=== PATIENT | female | born 1985 | race African-American/Black ===

== ENCOUNTER 2021-06-12 05:56 | Inpatient (IN) ==
--- NOTE | 2021-06-05 15:00 | Anesthesiology Consultation ---
Date of Service June 05, 2021 Assessment & Plan (1) Encounter for pre-operative examination: Chart Review Chart Review: master plumber initiated -Will leave BSG to anesthesiologist and OB discretion (pt with gestational DM) Per nursing assessment 06/05/2021, patient denies any recent travel. No known Covid infection in the past 90 days. Patient is not vaccinated for Covid. No known Covid positive contacts or Covid related symptoms. Spoke with patient via telephone 06/05/21- recommended she go for preop Covid testing scheduled 06/08/21= will await results. Pt voices understanding History Surgery Operation Date: 06/12/21 08:50 Proposed Procedures p Section Delivery of Baby Through Abdominal Incision - Samia Fuentes MD, FACOG s Bialteral Tubal Ligation - Samia Fuentes MD, FACOG Height/Weight Height: 5 ft 4 in Weight: 106.594 kg Allergies Allergy/AdvReac Type Severity Reaction Status Date / Time No Known Allergies Allergy Verified 06/05/21 14:22 Medications Home Medications Medication Instructions Recorded Confirmed Last Taken acetone (urine) test (Ketone Urine #50 ea 04/11/21 06/01/21 Unknown Test) blood-glucose meter (OneTouch #1 ea 04/11/21 06/01/21 Unknown Verio Flex meter) lancets 33 gauge (OneTouch Delica #150 ea 04/11/21 06/01/21 Unknown Plus Lancet) blood sugar diagnostic (OneTouch #100 ea 04/13/21 06/01/21 Unknown Verio test strips) 1 tab PO QPM 06/05/21 06/05/21 Unknown aspirin 81 mg tablet,delayed 81 mg PO QPM 06/05/21 06/05/21 Unknown release diphenhydramine HCl 25 mg capsule 25 mg PO QPM 06/05/21 06/05/21 Unknown (Benadryl) Past Medical History Medical History Acid reflux Diet controlled Gestational diabetes Diet controlled History of hypertension Resolved with diet changes/exercise Past Family History Family History Mother Hypertension Sister Glaucoma Other No family history of adverse response to anesthesia Denies family history of Ovarian cancer Breast cancer Colorectal cancer Past Surgical History Surgical History History of x 2 Social History Smoking Status: Never smoker Do You Dip or Chew Tobacco: No Hx Alcohol Use: No Hx Substance Use: No substance use type: does not use
--- NOTE | 2021-06-09 12:01 | History & Physical Report ---
Date of Service June 09, 2021 Assessment & Plan (1) Chronic hypertension affecting : (2) Previous delivery affecting , antepartum: (3) Obesity affecting , antepartum: (4) Gestational diabetes mellitus (GDM) affecting : (5) Elderly multigravida: Plan: Admit for planned c/s delivery. Declines tubal. Plan labs morning of admission. Preop abx. SCDs. Consent reviewed and signed. Risks, alternatives and complications reviewed. History of Present Illness Chief Complaint: planned c/s Primary Care Provider: NO PCP 36yo (prior twins) at 38+wks ega for planned section for admission on 06/12/21. She denies rom, vb. +FM. She asks if tubal ligation is permanent and when told she could consider it as such, she declines. She says brought up doing it with her spouse but he seems to be avoiding discussing further and so she does not want to do. PNC c/b 1. Prior c/s x 2, plan repeat c/s 2. CHTN, no meds, last growth EFW 68% 3. AMA 4. Obesity 5. GDM, last ac % 70, sending glucoses to endo PNL RH pos, RI, GBS neg Allergies Allergy/AdvReac Type Severity Reaction Status Date / Time No Known Allergies Allergy Verified 06/09/21 09:03 Home Medications Medication Instructions Recorded Confirmed Type acetone (urine) test (Ketone Urine #50 ea 04/11/21 06/09/21 Rx Test) blood-glucose meter (OneTouch #1 ea 04/11/21 06/09/21 Rx Verio Flex meter) lancets 33 gauge (OneTouch Delica #150 ea 04/11/21 06/09/21 Rx Plus Lancet) blood sugar diagnostic (OneTouch #100 ea 04/13/21 06/09/21 Rx Verio test strips) 1 tab PO QPM 06/05/21 06/09/21 History aspirin 81 mg tablet,delayed 81 mg PO QPM 06/05/21 06/09/21 History release diphenhydramine HCl 25 mg capsule 25 mg PO QPM 06/05/21 06/09/21 History (Benadryl) Patient History Medical History Acid reflux Diet controlled Gestational diabetes Diet controlled History of hypertension Resolved with diet changes/exercise Surgical History History of x 2 Family History Mother Hypertension Sister Glaucoma Other No family history of adverse response to anesthesia Denies family history of Ovarian cancer Breast cancer Colorectal cancer Social History Smoking Status: Never smoker Second Hand Exposure: Yes; Hx Alcohol Use: No Hx Substance Use: No Preferred Language: Belarusian Communication Ability: Effective 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 Beliefs That Will Affect Care: None marital status: marital status details: Ethan Rae(35) [phone] Current Living Situation: Family Current Living Situation Comment: lives with 3 children, spouse lives in [place], no pets current occupational status: employed current occupation: [employer] Feels Safe at Home: Yes Assistive Devices: Glasses Review of Systems as per Subjective / HPI Physical Exam Constitutional: WD/WN, vitals as above Respiratory: normal respiratory effort, lungs clear to auscultation Cardiovascular: Rate/Rhythm: regular rate and regular rhythm Gastrointestinal (Abdomen): soft gravid nt Musculoskeletal: no edema Neurologic: grossly normal Psychiatric: A+Ox3, euthymic affect Coding Level of Care Code None Diagnoses Chronic hypertension affecting O10.919 Previous delivery affecting , antepartum O34.219 Obesity affecting , antepartum O99.210 Gestational diabetes mellitus (GDM) affecting O24.419 Elderly multigravida O09.529
[2021-06-12] MEDS ORDERED: ceFAZolin 3,000 MG in DEXTROSE 5% 50 ML IV SCH (06:00)
[2021-06-12] MEDS ORDERED: CITRIC ACID/SODIUM CITRATE 15 ML UDC PO SCH (06:00)
[2021-06-12] MEDS ORDERED: LACTATED RINGER'S 1,000 ML IV SCH ×3 (06:00→08:45)
[2021-06-12 06:45] LABS: Eosinophils # (auto) 0.07 K/uL (0-0.5); Eosinophils % (auto) 1.2 %; Hematocrit (blood only) 37.7 % (37-47); Hemoglobin 12.4 g/dL (12.0-16.0); Immature Granulocytes # (auto) 0.01 K/uL (0.00-0.02); Immature Granulocytes % (auto) 0.2 %; Lymphocytes # (auto) 1.75 K/uL (1.2-3.4); Lymphocytes % (auto) 30.6 %; Mean Corpuscular Hemoglobin 29.6 pg (25-34); Mean Corpuscular Hgb Conc 32.9 g/dL (32-36); Mean Platelet Volume 10.2 fL (7.4-10.4); Monocytes # (auto) 0.35 K/uL (0.11-0.59); Monocytes % (auto) 6.1 %; Neutrophils # (auto) 3.54 K/uL (1.4-6.5); Neutrophils % (auto) 61.9 %; Platelet Count 198 K/uL (130-400); RDW Coefficient of Variation 14.8 % (11.5-14.5); RDW Standard Deviation 48.3 fL (36.4-46.3); Red Blood Count 4.19 M/uL (4.2-5.4); White Blood Count 5.72 K/uL (4.8-10.8)
[2021-06-12] MEDS ORDERED: MoRPHine SULFATE PF 1 MG/ML 10 ML AMP/VIAL ONE (06:49)
[2021-06-12] MEDS ORDERED: fentaNYL citrate 100 MCG/2 ML VIAL ONE (06:49)
--- NOTE | 2021-06-12 07:19 | History & Physical Bridge Note ---
Date of Service June 12, 2021 History & Physical Bridge Note I have examined the patient, reviewed the History & Physical and in the interval since the performance of the History & Physical I have noted the following changes of clinical significance: no changes noted
[2021-06-12] MEDS ORDERED: OXYTOCIN 10 UNITS/ML VIAL ONE (07:24)
[2021-06-12] MEDS ORDERED: ONDANSETRON INJ 2 MG/ML 2 ML VIAL ONE (07:24)
[2021-06-12] MEDS ORDERED: PHENYLEPHRINE HCL 10 MG/ML VIAL ONE (07:24)
[2021-06-12] MEDS ORDERED: PROMETHAZINE HCL 12.5 MG in SODIUM CHLORIDE 0.9% 50 ML IV PRN (08:12)
[2021-06-12] MEDS ORDERED: ONDANSETRON INJ 2 MG/ML 2 ML VIAL IV PRN ×2 (08:12→09:12)
[2021-06-12] MEDS ORDERED: ePHEDrine sulfate 50 MG/ML SYR ONE (08:12)
[2021-06-12] MEDS ORDERED: NALOXONE HCL 1 MG in SODIUM CHLORIDE 0.9% 1000ML 1,000 ML IV PRN (08:12)
[2021-06-12] MEDS ORDERED: KETOROLAC 30 MG/ML VIAL IV PRN ×2 (08:12→09:12)
[2021-06-12] MEDS ORDERED: NALBUPHINE HCL INJ 10 MG/ML AMP IV PRN (08:12)
[2021-06-12] MEDS ORDERED: ePHEDrine sulfate 50 MG/ML AMP IV PRN (08:12)
[2021-06-12] MEDS ORDERED: LACTATED RINGER'S 500 ML IV PRN (08:12)
[2021-06-12] MEDS ORDERED: NALOXONE HCL 0.4 MG/1 ML VIAL/CARP IV PRN (08:12)
[2021-06-12] MEDS ORDERED: NALOXONE HCL 0.08 MG in SYRINGE 1.8 ML IV PRN (08:12)
[2021-06-12] MEDS ORDERED: MoRPHine SULFATE PF 1 MG/ML 10 ML AMP/VIAL INT SPINAL ONE (08:12)
[2021-06-12] MEDS ORDERED: diphenhydrAMINE 50 MG/ML VIAL IV PRN ×2 (08:12→09:12)
[2021-06-12] MEDS ORDERED: MoRPHine SULFATE 2 MG/ML CARP IV PRN (08:12)
[2021-06-12] MEDS ORDERED: DC INTRASPINAL MORPHINE SCH (08:15)
[2021-06-12] MEDS ORDERED: NO NARCOTICS OR SEDATIVES SCH (08:15)
[2021-06-12] MEDS ORDERED: SODIUM CHLORIDE 0.9% 1000ML 1,000 ML IV SCH (08:15)
[2021-06-12] MEDS ORDERED: MAGNESIUM HYDROXIDE SUSP 30 ML UDC PO PRN ×2 (08:31→09:12)
[2021-06-12] MEDS ORDERED: BENZOCAINE 20% AER SPR 82.5 GM CAN EXT PRN ×2 (08:31→09:12)
[2021-06-12] MEDS ORDERED: DIPHTHERIA/TETANUS/PERTUSSIS 0.5 ML SYR/VIAL IM ONE (08:31)
[2021-06-12] MEDS ORDERED: SENNA 8.6 MG TAB PO PRN ×2 (08:31→09:12)
[2021-06-12] MEDS ORDERED: SUPERCREAM 0.870% 15 GM JAR EXT PRN ×2 (08:31→09:12)
[2021-06-12] MEDS ORDERED: HYDROCORTISONE ACETATE 25 MG SUPP PR PRN ×2 (08:31→09:12)
--- NOTE | 2021-06-12 08:34 | Post Operative Brief Note ---
PG Immediate Post Op with CF Date of Surgery June 12, 2021 Pre & Post Diagnosis Operation Date: 06/12/21 07:30 Pre-Op Diagnosis: 1) Chronic hypertension affecting : (2) Previous delivery affecting , antepartum: (3) Obesity affecting , antepartum: (4) Gestational diabetes mellitus (GDM) affecting : (5) Elderly multigravida 6. 38+week EGA Post-Op Diagnosis: same I identified the patient and participated in the time-out.: Yes Procedure Operation Date: 06/12/21 07:30 Actual Procedures p Repeat Low Transverse Cesearan Section for living female child at 0807(Bilateral) - Samia Fuentes MD, FACOG Surgeon Samia Fuentes MD, FACOG Pharmacist Aide Sonido Estimated Blood Loss 500 Findings Consistent with Post-Op Diagnosis (viable female apgars 8,9 normal uterus, tubes and ovaries bilaterally) Fluids 1500 Specimens Specimen Description: A: placent-hold B: cord blood Drains Osorio Catheter Anesthesia Type Spinal Complications none Disposition Accompanied Patient To Recovery: No Disposition: L&D
--- NOTE | 2021-06-12 08:37 | Operative Report ---
PG Post Operative Report Pre & Post Diagnosis Operation Date: 06/12/21 07:30 Pre-Op Diagnosis: 1. 38+week IUP 2. Chronic hypertension affecting : 3. Previous delivery affecting --desires repeat section 4. Obesity affecting , antepartum 5. Gestational diabetes mellitus (GDM) affecting 6. Elderly multigravida Post-Op Diagnosis: same I identified the patient and participated in the time-out.: Yes Procedure Operation Date: 06/12/21 07:30 Actual Procedures Repeat Low Transverse Section Surgeon Samia Fuentes MD, FACOG Plumbing Instructor Sonido Estimated Blood Loss 500 Findings Consistent with Post-Op Diagnosis (viable female apgars 8,9 normal uterus, tubes and ovaries bilaterally) Fluids 1500 Specimens cord blood Drains block Anesthesia Type Spinal Complications none Disposition Accompanied Patient To Recovery: No Disposition: L&D Indications 36yo (prior twins) at 38 weeks with prior c/s x 2 and chronic hypertension for planned c/s delivery. No new complaints. Ready for c/s. Declines tubal. Description of Procedure The patient was taken to the operating room and identified. After adequate anesthesia was obtained, she was placed in the supine position with a leftward tilt on the operating table and prepped and draped in the usual sterile fashion. A block catheter had already been placed. The knife was used to create a Pfannensteil skin incision that was carried down to the underlying layer of fascia. The fascia was nicked in the midline and this opening was extended laterally using Gutierrez scissors. Portia clamps were placed on the superior and inferior aspect of the fascial incision tenting it upward and the underlying rectus muscles were dissected off the overlying fascia both sharply and bluntly using Gutierrez scissors. The rectus muscles were bluntly in the midline. The peritoneal cavity was bluntly entered into. This opening was stretched. The bladder blade was placed. The vesicouterine peritoneum was elevated and opened up into and the bladder flap was created digitally and bladder blade was replaced. The knife was used to create a hysterotomy and this opening was stretched. The operators hand was placed through the hysterotomy and the bladder blade was removed. The head was elevated and flexed and with fundal pressure the head was delivered. The shoulders and body were rapidly delivered. The cord was clamped and cut and the 's mouth and nares were bulb suction. The infant was handed off to the awaiting pediatricians. Cord blood was obtained. The placenta was manually expressed. The uterus was exteriorized and cleared of all clots and debris. Dilute IV Pitocin was begun. The uterine tone was improving. The hysterotomy was closed in a running interlocking fashion using 0 Vicryl followed by a second imbricating layer of 0 Vicryl. The hysterotomy was hemostatic. The pelvis was irrigated. The uterus was returned to the abdomen. The gutters were cleared of all clots and debris. The hysterotomy was reinspected and noted to be hemostatic. The fascia was then closed in running fashion using 0 Vicryl. The subcutaneous fat was copiously irrigated and reapproximated using 2-0 chromic. The skin was closed in a subcuticular fashion using 4-0 Vicryl. At this point the procedure was terminated. The patient was transferred to the recovery room in stable condition. All sponge, lap and needle counts are correct x2. I attest to the content of the Intraoperative Record and any orders documented therein. Any exceptions are noted below. OB Procedure charges OB Charges 24438
[2021-06-12] MEDS ORDERED: ZOLPIDEM TARTRATE 5 MG TAB PO PRN (09:12)
[2021-06-12] MEDS ORDERED: diphenhydrAMINE Capsule 25 MG CAP PO PRN (09:12)
[2021-06-12] MEDS ORDERED: oxyCODONE/ACETAMINOPHEN 5mg/325mg TAB PO PRN (09:12)
[2021-06-12] MEDS ORDERED: IBUPROFEN 600 MG TAB PO PRN (09:12)
[2021-06-12] MEDS ORDERED: PROMETHAZINE HCL 25 MG in SODIUM CHLORIDE 0.9% 50 ML IV PRN (09:12)
[2021-06-12] MEDS ORDERED: OXYTOCIN 20 UNITS in LACTATED RINGER'S 1,000 ML IV SCH (09:12)
--- NOTE | 2021-06-12 09:21 | Anesthesiology Progress Note ---
Date of Service June 12, 2021 Anesthesia Post Procedure Vital Signs Vital Signs: Temp Pulse Resp BP Pulse Ox 06/12/21 09:19 93 H 99 06/12/21 09:16 82 122/59 L 06/12/21 09:14 88 100 06/12/21 09:12 101 H 90 06/12/21 09:09 85 100 06/12/21 09:06 100 H 141/71 H 06/12/21 09:04 87 100 06/12/21 08:59 91 H 100 06/12/21 08:56 83 119/63 06/12/21 08:54 83 100 06/12/21 08:49 93 H 100 06/12/21 08:46 90 124/73 06/12/21 08:44 96 H 100 06/12/21 06:17 101 H 120/85 06/12/21 06:10 36.8 C 18 Transfer of Care Handoff Completed per policy Notes Mental Status: alert / awake / arousable Patient Amnestic to Procedure: No Nausea / Vomiting: adequately controlled Pain: adequately controlled Airway Patency, RR, SpO2: stable & adequate BP & HR: stable & adequate Hydration State: stable & adequate Neuraxial Anesthesia: was administered and sensory block is resolving Anesthetic Complications: no major complications apparent and Pt Satisfied with anesthetic care
[2021-06-12] MEDS: OXYTOCIN 20 UNITS in LACTATED RINGER'S 1,000 ML IV SCH ×2 (10:39→18:45)
[2021-06-12] MEDS ORDERED: SIMETHICONE 80 MG CHEW PO SCH (13:00)
[2021-06-12] MEDS ORDERED: [UNRECOGNIZED DRUG - REMARK] IM ONE (15:00)
[2021-06-12] MEDS: SIMETHICONE 80 MG CHEW PO SCH ×2 (15:07→20:27)
[2021-06-12] MEDS: DOCUSATE SODIUM 100 MG CAP PO SCH (20:27)
[2021-06-12] MEDS ORDERED: DOCUSATE SODIUM 100 MG CAP PO SCH (21:00)
[2021-06-13] MEDS ORDERED: diphenhydrAMINE 50 MG/ML VIAL IV PRN (02:14)
[2021-06-13] MEDS ORDERED: KETOROLAC 30 MG/ML VIAL IV PRN (02:14)
[2021-06-13] MEDS ORDERED: MEPERIDINE HCL 50 MG/ML CARP IV PRN (02:14)
[2021-06-13] MEDS ORDERED: PROMETHAZINE HCL 25 MG in SODIUM CHLORIDE 0.9% 50 ML IV PRN (02:14)
[2021-06-13] MEDS ORDERED: diphenhydrAMINE Capsule 25 MG CAP PO PRN (02:14)
[2021-06-13] MEDS ORDERED: ONDANSETRON INJ 2 MG/ML 2 ML VIAL IV PRN (02:14)
[2021-06-13 07:02] LABS: Basophils # (auto) 0.01 K/uL (0-0.2); Basophils % (auto) 0.2 %; Eosinophils # (auto) 0.13 K/uL (0-0.5); Eosinophils % (auto) 2.1 %; Hematocrit (blood only) 36.2 % (37-47); Hemoglobin 11.7 g/dL (12.0-16.0); Immature Granulocytes # (auto) 0.01 K/uL (0.00-0.02); Immature Granulocytes % (auto) 0.2 %; Lymphocytes # (auto) 1.23 K/uL (1.2-3.4); Lymphocytes % (auto) 19.6 %; Mean Corpuscular Hemoglobin 28.9 pg (25-34); Mean Corpuscular Hgb Conc 32.3 g/dL (32-36); Mean Corpuscular Volume 89.4 fL (80-100); Mean Platelet Volume 10.3 fL (7.4-10.4); Monocytes # (auto) 0.44 K/uL (0.11-0.59); Neutrophils # (auto) 4.45 K/uL (1.4-6.5); Neutrophils % (auto) 70.9 %; Platelet Count 176 K/uL (130-400); RDW Coefficient of Variation 15.2 % (11.5-14.5); RDW Standard Deviation 49.2 fL (36.4-46.3); Red Blood Count 4.05 M/uL (4.2-5.4); White Blood Count 6.27 K/uL (4.8-10.8)
--- NOTE | 2021-06-13 07:06 | Obstetrical Progress Note ---
Date of Service June 13, 2021 Assessment & Plan (1) Encounter for care and examination after delivery: doing well. cbc noted. routine care. adv diet, ambulate, await spont void, po pain meds. breast/rh pos/ri. Day #:: 1 Subjective Ambulation: limited ambulation Passing Gas:: Yes Diet Tolerance:: regular diet Lochia:: Small Feeding Type:: breast feeding has not voided yet since catheter out. no pain issues. would like a binder. Constitutional: + as per Subjective / HPI Physical Exam Constitutional WD/WN, vitals as above Respiratory normal respiratory effort, lungs clear to auscultation Cardiovascular Rate/Rhythm: regular rate and regular rhythm Gastrointestinal (Abdomen) Inspection/Auscultation: abdomen normal to inspection and + abdominal surgical incision (c/d/i) Percussion/Palpation: abdomen soft Fundus firm 1cm down Musculoskeletal nt calves no edema Neurologic grossly normal Psychiatric A+Ox3, euthymic affect Results & Data ([facility]) Vital Signs (Past 12 Hours) Vital Signs Temp Pulse Resp BP Pulse Ox 06/13/21 05:10 98.1 F 69 18 127/85 98 06/13/21 02:15 18 99 06/13/21 02:00 18 99 06/13/21 01:00 18 98 06/13/21 00:00 18 96 06/12/21 23:45 98.1 F 80 18 112/74 99 06/12/21 23:00 18 96 06/12/21 22:00 18 98 06/12/21 21:00 18 94 06/12/21 20:25 98.2 F 84 18 114/77 96 06/12/21 20:00 18 96
[2021-06-13] MEDS ORDERED: PRENATAL VITAMIN 1 TAB PO SCH (08:00)
[2021-06-13] MEDS ORDERED: FERROUS SULFATE 325 MG TAB PO SCH (08:00)
[2021-06-13] MEDS: FERROUS SULFATE 325 MG TAB PO SCH (08:52)
[2021-06-13] MEDS: DOCUSATE SODIUM 100 MG CAP PO SCH ×2 (08:52→20:41)
[2021-06-13] MEDS: SIMETHICONE 80 MG CHEW PO SCH ×4 (08:52→20:41)
[2021-06-13] MEDS: PRENATAL VITAMIN 1 TAB PO SCH (08:52)
[2021-06-13] MEDS: oxyCODONE/ACETAMINOPHEN 5mg/325mg TAB PO PRN ×2 (10:27→16:45)
[2021-06-13] MEDS: IBUPROFEN 600 MG TAB PO PRN ×2 (10:27→16:45)
[2021-06-13 17:09] VITALS: TEMP 98.1; O2SAT 100
[2021-06-13] MEDS ORDERED: bisacodyL 5 MG TABEC PO SCH (20:00)
[2021-06-14] MEDS: oxyCODONE/ACETAMINOPHEN 5mg/325mg TAB PO PRN (02:49)
[2021-06-14] MEDS: IBUPROFEN 600 MG TAB PO PRN ×2 (02:49→09:19)
--- NOTE | 2021-06-14 06:37 | Obstetrical Progress Note ---
Date of Service <Servando Marrero DO - Last Filed: 06/14/21 06:37> June 14, 2021 Assessment & Plan <Servando Marrero DO - Last Filed: 06/14/21 06:37> (1) Encounter for care and examination after delivery: 36 yo POD 2 from [facility] at 38 weeks. -Continue routine care -Vitals reviewed- HDS, afebrile -A+, GBS-, Rubella immune -Encourage ambulation, regular diet -Pain control with ibuprofen, oxycodone PRN -Encourage -Hgb 11.7 on 06/13 -F/u in 6 weeks with OB <Senait Cook, - Last Filed: 06/14/21 08:08> (1) Encounter for care and examination after delivery: Subjective <Servando Marrero DO - Last Filed: 06/14/21 06:37> Ambulation: ambulating normally Voiding: no voiding problems Passing Gas:: Yes Diet Tolerance:: regular diet Lochia:: Small Feeding Type:: breast feeding Current Pain Level(1-10): 4 POD 2 s/p LCTS. Patient seen and examined at bedside. Reports no acute overnight events. Review of Systems All systems reviewed & are unremarkable except as noted in HPI & below Physical Exam <Servando Marrero DO Last Filed: 06/14/21 06:37> General: Alert, oriented, no acute distress Cardiac: Regular rate and rhythm, normal S1, S2. No murmurs appreciated. Respiratory: Clear to auscultation b/l with good air flow entry, symmetric chest rise and fall. No wheezes or crackles. No increased work of breathing or accessory muscle use Abdomen: Soft, nontender, nondistended. Fundus firm and palpable at 1 cm below umbilicus. Surgical incision clean, dry and intact without erythema, warmth or drainage. Bowel sounds appreciated. No guarding or rebound. Skin: No rashes or lesions Extremities: Warm, dry, well-perfused with capillary refill <2s b/l. No lower extremity edema, erythema or swelling. Negative Ananya's sign b/l. Results & Data ([facility]) <Servando Marrero DO - Last Filed: 06/14/21 06:37> Vital Signs (Past 12 Hours) Vital Signs Temp Pulse Resp BP 06/13/21 23:45 36.7 C 80 18 132/90 <Senait Cook DO - Last Filed: 06/14/21 08:08> Co-Signing Physician Notes Resident Physician Supervision Note: I was present with Dr. Marrero during the history and exam. I discussed the case with the resident and agree with the findings and plan as documented in the note. Any exceptions or clarifications are listed here: POD#2 doing well. Incision CDI. DC home today. Percocet Rx #20 tabs sent. Instructions reviewed. Followup office 6w. Documented By: Senait Cook DO
[2021-06-14 07:24] LABS: Hematocrit (blood only) 34.7 % (37-47); Hemoglobin 11.3 g/dL (12.0-16.0)
[2021-06-14] MEDS ORDERED: bisacodyL 10 MG SUPP PR PRN ×2 (08:32→08:38)
[2021-06-14] MEDS: PRENATAL VITAMIN 1 TAB PO SCH (09:18)
[2021-06-14] MEDS: SIMETHICONE 80 MG CHEW PO SCH (09:18)
[2021-06-14] MEDS: DOCUSATE SODIUM 100 MG CAP PO SCH (09:18)
[2021-06-14] MEDS: FERROUS SULFATE 325 MG TAB PO SCH (09:19)
[2021-06-14 09:45] VITALS: BP 128/85; PULSE 86
--- NOTE | 2021-06-16 21:44 | Discharge Summary ---
Date of Service Date of admission 06/12/21 Date of discharge 06/14/21 Admission HPI Per Admitting Provider 36yo (prior twins) at 38+wks ega for planned section for admission on 06/12/21. She denies rom, vb. +FM. She asks if tubal ligation is permanent and when told she could consider it as such, she declines. She says brought up doing it with her spouse but he seems to be avoiding discussing further and so she does not want to do. PNC c/b 1. Prior c/s x 2, plan repeat c/s 2. CHTN, no meds, last growth EFW 68% 3. AMA 4. Obesity 5. GDM, last ac % 70, sending glucoses to endo PNL RH pos, RI, GBS neg Discharge Data Consultations 06/12/21 05:58 Consult Anesthesiology Stat Procedures Performed Operation Date: 06/12/21 07:30 Actual Procedures p Repeat Low Transverse Cesearan Section - Samia Fuentes MD, FACOG Hospital Course (1) Chronic hypertension affecting : (2) Obesity affecting , antepartum: (3) Gestational diabetes mellitus (GDM) affecting : (4) Previous delivery affecting , antepartum: (5) Elderly multigravida: The patient underwent the above stated procedure without incident and her postoperative course and recovery was uncomplicated. On her postoperative day #2 she was tolerating a regular diet, voiding spontaneously, ambulating without problem and was using oral meds for adequate pain control. Her postoperative hemoglobin was 11.3. She was given written and verbal discharge instructions and told to followup in office at 6wks. She was given appropriate pain medicine prescriptions. Coding Level of Care Code None Diagnoses Chronic hypertension affecting O10.919 Obesity affecting , antepartum O99.210 Gestational diabetes mellitus (GDM) affecting O24.419 Previous delivery affecting , antepartum O34.219 Elderly multigravida O09.529
== END 2021-06-14 13:27 | disposition home or self-care (01) | DRG 787 ==
LOC: 4S1 05:56 → EDSTATUS 08:50 → 4S2 15:15
DX: Z37.0 Single live birth; O24.420 Gestational diabetes mellitus in childbirth, diet controlled; O34.211 Maternal care for low transverse scar from previous cesarean delivery; Z3A.38 38 weeks gestation of pregnancy; Z82.49 Family history of ischemic heart disease and other diseases of the circulatory system; Z79.82 Long term (current) use of aspirin; O09.529 Supervision of elderly multigravida, unspecified trimester; O99.214 Obesity complicating childbirth; O10.92 Unspecified pre-existing hypertension complicating childbirth; Z77.22 Contact with and (suspected) exposure to environmental tobacco smoke (acute) (chronic); Z79.899 Other long term (current) drug therapy; Z91.018 Allergy to other foods